=== PATIENT | male | born 1985 | race Hispanic/Latino ===

== ENCOUNTER 2016-11-08 16:51 | Emergency (ER) | payer SELFPAY ==
[~2016-11-08] VITALS: Ht 172.7 cm; Wt 75.0 kg
[2016-11-08] MEDS ORDERED: FLEXERIL PO (17:25)
[2016-11-08] MEDS ORDERED: MOTRIN800 MG PO (17:25)
[2016-11-08 17:56] VITALS: BP 138/86
== END 2016-11-08 18:00 | disposition home or self-care (01) | DRG 563 ==
LOC: ED 16:51
DX: S39.012A Strain of muscle, fascia and tendon of lower back, initial encounter (principal); X50.0XXA Overexertion from strenuous movement or load, initial encounter; Y93.89 Activity, other specified